=== PATIENT | male | born 1990 | race Caucasian/White ===

== ENCOUNTER → 2017-09-01 | Outpatient (CLI) | payer OTHER | LOC: M RAD 09:14 | DX: R93.7 Abnormal findings on diagnostic imaging of other parts of musculoskeletal system (principal) | CPT/HCPCS: 78315 ==

== ENCOUNTER 2017-11-27 10:58 | Emergency (ER) | payer OTHER | END 2017-11-27 12:15 | disposition home or self-care (01) | LOC: M ED 10:58 | DX: S39.002A Unspecified injury of muscle, fascia and tendon of lower back, initial encounter (principal); X50.0XXA Overexertion from strenuous movement or load, initial encounter; Y92.89 Other specified places as the place of occurrence of the external cause; F17.210 Nicotine dependence, cigarettes, uncomplicated | CPT/HCPCS: 99282 ==

== ENCOUNTER → 2018-02-04 | Outpatient (CLI) | payer OTHER | LOC: M RAD 07:08 | DX: M51.36 Other intervertebral disc degeneration, lumbar region (principal); M51.26 Other intervertebral disc displacement, lumbar region; G89.29 Other chronic pain | CPT/HCPCS: 72131 ==

== ENCOUNTER → 2018-03-05 | Outpatient (CLI) | payer OTHER ==
[~2018-03-05] MED LIST: ACET1TAB55 PO; NORCOTAB PO; ROBA500T PO
--- NOTE | 2018-03-05 10:51 | REP ---
REASON: Leg pain. PRIORS: None. There is an intramedullary zainab in the tibia, the proximal portion of which does not breach the tibial metaphyseal articular surface and the distal portion of which does not breach the tibial plafond. There is a healed distal tibial fracture. There is no acute fracture. There is no evidence of abnormal soft tissue swelling. There is a healed distal fibular fracture. IMPRESSION: Chronic changes as described above. Electronically Signed by Emir Patricio DO 03/05/2018 11:16 A
== END ==
LOC: M RAD 08:42
PROVIDERS: ATTEND Physician Assistant
DX: M79.662 Pain in left lower leg (principal)